=== PATIENT | female | born 1980 | race Caucasian/White ===

== ENCOUNTER 2020-11-02 15:18 | Emergency (ER) | payer MEDICARE ==
[2020-11-02] MEDS ORDERED: NORCO 5-325 TA1 EACH PO (18:17)
== END 2020-11-02 18:45 | disposition home or self-care (01) ==
LOC: FER 15:18
DX: T23.252A Burn of second degree of left palm, initial encounter (principal); I10 Essential (primary) hypertension; Z88.0 Allergy status to penicillin; Z88.6 Allergy status to analgesic agent; X19.XXXA Contact with other heat and hot substances, initial encounter; Y92.009 Unspecified place in unspecified non-institutional (private) residence as the place of occurrence of the external cause
CPT/HCPCS: 99283